=== PATIENT | male | born 1985 | race Caucasian/White ===

== ENCOUNTER 2021-02-26 21:50 | Emergency (ER) | payer BC ==
[2021-02-26] MEDS ORDERED: Ondansetron ODT 4 MG TAB ONE (23:15)
== END 2021-02-26 23:20 | disposition home or self-care (01) ==
LOC: BURERS 21:50
DX: R05 Cough (principal); R09.81 Nasal congestion; R11.0 Nausea; Z20.822 Contact with and (suspected) exposure to COVID-19
CPT/HCPCS: 99283; Q0162